=== PATIENT | female | born 1955 | race Caucasian/White ===

== ENCOUNTER 2025-04-27 17:49 | Emergency (ER) | payer MEDICARE, SELFPAY ==
[2025-04-27 17:51] VITALS: BP 159/96; PULSE 89; RESP 18; TEMP 36.6; O2SAT 98
--- NOTE | 2025-04-27 18:02 | CT_ITS ---
EXAM: CT BRAIN/HEAD WITHOUT CONTRAST; SPINE CERVICAL WITHOUT CONTRAST CLINICAL HISTORY: FALL, HEAD LAC RIGHT SIDE; FALL COMPARISON: None. TECHNIQUE: Noncontrast CT images of the head and cervical spine with multiplanar reconstructions. Dose reduction techniques were used including intermediate exposure control (AEC),iterative reconstruction technique, and/or mA and/or KV dose adjustments based on patient's size. FINDINGS: HEAD: No acute intracranial hemorrhage, extra-axial collection, mass effect or evidence of acute infarct. Mild generalized brain parenchymal volume loss and chronic microangiopathic changes. Mild right frontal/supraorbital scalp contusion/hematoma with laceration. Unremarkable orbital contents. Intact skull base and calvarium. Well-aerated paranasal sinuses and mastoid air cells. CERVICAL SPINE: No acute fracture or subluxation. Straightening of the cervical lordosis is likely positional and/or degenerative in nature. Multilevel spondylotic changes with varying degrees of disc space narrowing, anterior osteophytosis, uncovertebral spurring and hypertrophic facet arthropathy. No prevertebral soft tissue swelling. 13 mm hypodense nodule/cyst in the right thyroid lobe. CT/Brain/Head without Contrast IMPRESSION: 1. No acute intracranial abnormality. 2. Mild right frontal supraorbital scalp contusion/hematoma with laceration. 3. No acute cervical spine fracture or subluxation. Degenerative changes as fred cribed. Reading Location: [id number]
--- NOTE | 2025-04-27 18:02 | CT_ITS ---
EXAM: CT BRAIN/HEAD WITHOUT CONTRAST; SPINE CERVICAL WITHOUT CONTRAST CLINICAL HISTORY: FALL, HEAD LAC RIGHT SIDE; FALL COMPARISON: None. TECHNIQUE: Noncontrast CT images of the head and cervical spine with multiplanar reconstructions. Dose reduction techniques were used including intermediate exposure control (AEC),iterative reconstruction technique, and/or mA and/or KV dose adjustments based on patient's size. FINDINGS: HEAD: No acute intracranial hemorrhage, extra-axial collection, mass effect or evidence of acute infarct. Mild generalized brain parenchymal volume loss and chronic microangiopathic changes. Mild right frontal/supraorbital scalp contusion/hematoma with laceration. Unremarkable orbital contents. Intact skull base and calvarium. Well-aerated paranasal sinuses and mastoid air cells. CERVICAL SPINE: No acute fracture or subluxation. Straightening of the cervical lordosis is likely positional and/or degenerative in nature. Multilevel spondylotic changes with varying degrees of disc space narrowing, anterior osteophytosis, uncovertebral spurring and hypertrophic facet arthropathy. No prevertebral soft tissue swelling. 13 mm hypodense nodule/cyst in the right thyroid lobe. CT/Spine Cervical without Contras IMPRESSION: 1. No acute intracranial abnormality. 2. Mild right frontal supraorbital scalp contusion/hematoma with laceration. 3. No acute cervical spine fracture or subluxation. Degenerative changes as fred cribed. Reading Location: [id number]
--- NOTE | 2025-04-27 18:04 | EDS_ITS ---
HPI History of Present Illness Chief Complaint: Laceration Narrative Narrative: Patient is a 69-year-old female presenting to the emergency department for a forehead laceration. Patient states that she was hurrying and tripped on something causing her to fall at ground-level and struck the right side of her forehead on cement. She denies any loss of consciousness. Denies use of OAC. Denies any neck or back pain. Denies any other injuries other than the laceration on her right sided forehead. States that it was a fall caused by tripping denies any chest pain, shortness of breath, palpitations, lightheadedness or dizziness prior to the fall. She states her last tetanus shot was over 10 years ago. PFSH PFS Allergy/AdvReac Type Severity Reaction Status Date / Time No Known Allergies Allergy Verified 04/27/25 17:51 Social History Smoking Status: Unknown if ever smoked ROS ROS ED ROS Narrative see HPI EXAM Physical Exam Narrative Exam Narrative: Vital signs: Reviewed General: Alert and oriented x 3. No acute distress HEENT: Head is normocephalic. There is a 4 cm laceration to the right side of the forehead that is linear with underlying small cephalohematoma. There is no active bleeding. No foreign body noted on wound exploration. No other facial or scalp lacerations or abrasions. Midface is stable and nontender to palpation. Pupils 2 mm equal round and reactive. Nares are patent. No septal hematoma. Oropharynx and throat exams normal. No oropharyngeal trauma. Neck: Supple without lymphadenopathy nontender. No midline cervical spinal tenderness to palpation. No step-offs or deformities. Cardiovascular: Regular rate and rhythm, no murmurs. No rubs or gallops. Normal S1 and S2 Respiratory: Clear to auscultation bilaterally. No wheezes, rales, rhonchi Chest: Chest wall is atraumatic and nontender to palpation. No crepitus, ecchymosis or erythema. Abdominal: Soft and nontender. Normal bowel sounds. No guarding or rebound. Nonsurgical abdomen Extremities: No midline thoracic or lumbar spinal tenderness to palpation. No step-offs or deformities. Hips are stable and nontender to palpation. Extremities are atraumatic and nontender to palpation with normal active range of motion. No tenderness. No bruising. Normal range of motion. Normal sensation. Skin: No rash or redness. Neurological: Cranial nerves II through XII are grossly intact. Normal strength and sensation. Normal cerebellar function The rest of the physical exam is unremarkable Const Vital Signs: 04/27/25 17:51 Temperature 98 F Temperature Source Oral Pulse Rate 89 Respiratory Rate 18 Blood Pressure 159/96 H Blood Pressure Mean 117 Pulse Ox 98 Oxygen Delivery Method Room Air MDM MDM MDM Narrative Medical decision making narrative: Patient is a 69-year-old female presenting to the emergency department after a mechanical fall with a forehead laceration. Patient was seen and examined. Vitals are stable. Patient resting in bed comfortably in no acute distress. This was a purely mechanical fall, no prodromal symptoms causing the fall. Given the patient's age and evidence of head trauma, CT the brain and cervical spine were ordered. Tetanus was updated. Wound was copiously irrigated. 2% lidocaine with epi was used for infiltration of the wound. laceration was repaired with 6 5.0 Ethilon simple interrupted sutures. Patient tolerated the procedure well. She was given wound care instructions including watching the laceration for signs of infection including erythema, drainage or warmth. She was instructed to have the sutures removed in 5 to 7 days either by her primary care, urgent care or in the emergency department. CT of the brain reviewed by myself, no acute intracranial abnormality noted. Radiology read in agreement. CT cervical spine with no acute cervical spine fracture or subluxation. Degenerative changes are described in the radiology report. Patient ambulated without difficulty. All questions answered. Patient discharged [facility]. I do not feel that the patient's evaluation reveals any acute reason for admission at this time. I instructed them to either follow-up with their primary care physician or promptly return to the Emergency Department for reevaluation should symptoms worsen or new symptoms develop. I explained what symptoms would indicate the need to return to the emergency department. Shared decision making was used. The patient voiced understanding of the treatment plan and is agreeable with it. Clinical impression: mechanical fall forehead laceration History & Record Review Discussion w/independent historian: Patient and Friend Radiography Diagnostic Testing: Clinical Impression(s) from Imaging Studies Brain CT 04/27/25 18:02 IMPRESSION: 1. No acute intracranial abnormality. 2. Mild right frontal supraorbital scalp contusion/hematoma with laceration. 3. No acute cervical spine fracture or subluxation. Degenerative changes as described. Reading Location: [facility] Cervical Spine CT 04/27/25 18:02 IMPRESSION: 1. No acute intracranial abnormality. 2. Mild right frontal supraorbital scalp contusion/hematoma with laceration. 3. No acute cervical spine fracture or subluxation. Degenerative changes as d escribed. Reading Location: [facility] Discharge Plan Triage Chief Complaint: Laceration ED Provider: Carmen Butler Dx/Rx/DC Orders Clinical Impression: Fall, Face lacerations Instructions: ED FACIAL LACERATION Suture Tape, ED Laceration Minimize Scars Primary Care Provider: Care Physician,No Primary Referrals: Eliz Nichols MD [Med Staff - Internal [employer], Internal Medicine] - As soon as possible NOT,DEFINED [Non-Staff, None] Activity Restrictions/Additional Instructions: You need to have the sutures removed in 5 to 7 days either by your primary care doctor, urgent care or in the emergency department. You need to watch for signs of infection around the cut including redness, drainage or warmth. Return to the emergency department immediately if you develop these symptoms. Try to keep the cut is clean and dry as you can and to keep it covered from the sun. Your evaluation in the Emergency Department did not reveal any acute reason for admission. However, I want to emphasize that you may be early in the course of a disease process or illness even if it is not present. For this reason you should follow-up within 24 hours for reevaluation with either your primary care physician or if necessary back here in the Emergency Department. You should return to the Emergency Department immediately if your symptoms worsen or new symptoms develop. Print Language: Kyrgyz Disposition Disposition: Home, Self Care
[2025-04-27] MEDS: Lidocaine 2% /Epi 1:100 (20ml) 20 ML VIAL 10 ML INFILT (18:10)
--- NOTE | 2025-04-27 19:44 | CM.ED ---
Social Work SW introduced self to patient, explained role with hospital and reason for visit. Patient confirmed that she does not have a PCP. SW offered [facility] provider list, patient stated she preferred to stay away from doctors. SW told patient it was her choice if she would like the resource, patient asked SW to leave the brochure. No further needs at this time. Valentina Pillai, REGISTERED NURSE SUPERVISOR, HIGH SCHOOL VICE PRINCIPAL
[2025-04-27 20:23] VITALS: BP 156/78; PULSE 71; RESP 15; TEMP 36.6; O2SAT 99
== END 2025-04-27 20:24 | disposition home or self-care (01) ==
PROVIDERS: Emergency Provider Student in an Organized Health Care Education/Training Program; Visit Provider Student in an Organized Health Care Education/Training Program
DX: S01.81XA Laceration without foreign body of other part of head, initial encounter (principal); W01.198A Fall on same level from slipping, tripping and stumbling with subsequent striking against other object, initial encounter; Z23 Encounter for immunization
CPT/HCPCS: 12013; 70450; 72125; 90471; 90715; 96372; 99282